=== PATIENT | female | born 1930 | race Caucasian/White ===

== ENCOUNTER 2016-07-09 11:04 | Emergency (ER) | payer OTHER ==
[~2016-07-09] VITALS: Ht 157.5 cm; Wt 60.8 kg
[2016-07-09] MEDS ORDERED: TETANUS/DIPHTHERIA TOX ADSORB ADULT 0.5ML SYR/VIAL (90714) IM ONE (11:30)
[2016-07-09] MEDS ORDERED: NORCO, ANEXSIA 5/325MG TABLET (HYDROcodone/ACETAMINOPHEN) PO ONE (11:30)
--- NOTE | 2016-07-09 12:14 | REP ---
CT HEAD WITHOUT CONTRAST: HISTORY: Trauma. An area of decreased attenuation is present in the left basal ganglia. This represents an old lacunar infarction. Areas of decreased attenuation are present in the periventricular and subcortical white matter. This represents small vessel ischemic disease. There is no intraparenchymal hemorrhage, mass, or midline shift. The ventricular system and cortical sulci are dilated consistent with minimal volume loss. There is no extracerebral collection. There is no fracture. The visualized sinuses are clear. Soft tissue swelling is present over the left frontal bone. IMPRESSION: 1. Small vessel ischemic disease. 2. Minimal volume loss. Signed by Randell Xie MD 07/09/2016 12:20 P
[2016-07-09] MEDS ORDERED: ADACEL/BOOSTRIX VACCINE (DIPHTH/PERTUSS/ACELL/TETANUS)0.5ML SYR (90715) IM ONE (12:15)
--- NOTE | 2016-07-09 12:21 | REP ---
CT CERVICAL SPINE WITHOUT CONTRAST: HISTORY: Trauma. There is no acute fracture. Disc bulges with associated osteophyte formation are present at the C5-6 and C6-7 levels. There is minimal narrowing of the spinal canal. Uncinate process and/or facet hypertrophy are present at the C2-3 through C6-7 levels. These findings produce minimal to mild narrowing of the neural foramina. The C4-5 through C6-7 intervertebral discs are decreased in height, consistent with disc degeneration. There are 2 mm of anterior subluxation of C4 on C5 and T1 on T2. Hypodensities are present in the thyroid gland. These measure 5 to 9 mm in size. IMPRESSION: 1. There is no acute fracture. 2. There is cervical spondylosis at the C2-3 through C6-7 levels. 3. There are hypodensities in the thyroid lobe. These may represent cysts. Ultrasound may be helpful for further evaluation. Signed by Randell Xie MD 07/09/2016 12:24 P
--- NOTE | 2016-07-09 12:21 | REP ---
Clinical: Trauma. Technique: AP, lateral, bilateral oblique views. Findings: Four views of the right wrist demonstrates osteopenia and arthritic degenerative changes. No acute fracture or dislocation. Impression: No acute fracture dislocation. Signed by Tigre Moya MD 07/09/2016 12:14 P
--- NOTE | 2016-07-09 12:22 | REP ---
Clinical: Trauma. Technique: AP, lateral, bilateral oblique views of the right hand. Findings: Osteopenia and age-related arthritic degenerative changes are appreciated. No acute fracture or dislocation. Impression: Osteopenia and arthritic changes. No acute fracture or dislocation. Signed by Tigre Moya MD 07/09/2016 12:15 P
[2016-07-09] MEDS ORDERED: GLIP5TAB8 PO (12:26)
[2016-07-09] MEDS ORDERED: SIMV20TA2 PO (12:26)
[2016-07-09] MEDS ORDERED: LOSA50TA20 PO (12:26)
[2016-07-09] MEDS ORDERED: BACI500O8 TOP (12:58)
[2016-07-09] MEDS ORDERED: NORCOTAB PO (12:59)
[2016-07-09 14:19] VITALS: BP 146/66
== END 2016-07-09 14:21 | disposition home or self-care (01) ==
LOC: EDBD 11:04 → M ED 11:52
DX: S00.83XA Contusion of other part of head, initial encounter (principal); S60.221A Contusion of right hand, initial encounter; W01.0XXA Fall on same level from slipping, tripping and stumbling without subsequent striking against object, initial encounter; Y92.511 Restaurant or cafe as the place of occurrence of the external cause; Y93.89 Activity, other specified; Y99.8 Other external cause status; E11.9 Type 2 diabetes mellitus without complications; I10 Essential (primary) hypertension; I51.9 Heart disease, unspecified; E78.9 Disorder of lipoprotein metabolism, unspecified; Z85.3 Personal history of malignant neoplasm of breast; Z88.5 Allergy status to narcotic agent; Z79.899 Other long term (current) drug therapy